=== PATIENT | female | born 1955 | race Caucasian/White ===

== ENCOUNTER → 2016-06-19 | Outpatient (CLI) | payer BC ==
--- NOTE | 2016-06-30 11:43 | MM ---
Reason for exam: screening (asymptomatic). Last mammogram was performed 1 year and 6 months ago. History: Patient is postmenopausal. Physical Findings: A clinical breast exam by your physician is recommended on an annual basis and results should be correlated with mammographic findings. MG 3D Screening Mammo W/Cad Bilateral CC and MLO view(s) were taken. Prior study comparison: December 07, 2014, bilateral MG screening mammo w CAD. October 29, 2011, mammogram, performed at [facility]. September 04, 2010, mammogram, performed at [facility]. There are scattered fibroglandular densities. No significant changes when compared with prior studies. ASSESSMENT: Negative, BI-RAD 1 RECOMMENDATION: Routine screening mammogram of both breasts in 1 year.
== END | disposition home or self-care (01) ==
LOC: RADMAMWWP 14:54
PROVIDERS: ATTEND Family Medicine
DX: Z12.31 Encounter for screening mammogram for malignant neoplasm of breast (principal)
CPT/HCPCS: 77063; G0202

== ENCOUNTER → 2017-09-24 | Outpatient (CLI) | payer BC ==
--- NOTE | 2017-09-27 11:05 | MM ---
Reason for exam: screening (asymptomatic). Last mammogram was performed 1 year and 3 months ago. History: Patient is postmenopausal. Physical Findings: A clinical breast exam by your physician is recommended on an annual basis and results should be correlated with mammographic findings. MG 3D Screening Mammo W/Cad Bilateral CC and MLO view(s) were taken. Prior study comparison: June 19, 2016, bilateral MG 3d screening mammo w/cad. December 07, 2014, bilateral MG screening mammo w CAD. The breast tissue is heterogeneously dense. This may lower the sensitivity of mammography. No suspicious abnormality. No significant changes when compared with prior studies. ASSESSMENT: Negative, BI-RAD 1 RECOMMENDATION: Routine screening mammogram of both breasts in 1 year.
== END | disposition home or self-care (01) ==
LOC: RADMAMWWP 14:44
PROVIDERS: ATTEND Family Medicine
DX: Z12.31 Encounter for screening mammogram for malignant neoplasm of breast (principal)
CPT/HCPCS: 77063; 77067

== ENCOUNTER → 2019-05-12 | Day surgery (SDC) | payer BC ==
[~2019-05-12] MED LIST: BUPIVACAIN-EPI 0.25%-1:200,000 30 ML VIAL SQ ONE; CLINDAMYCIN 900 MG in DEXTROSE 5% IN WATER 50 ML IVPB STA; DEXAMETHASONE SOD PHOSPHATE 10 MG/ML 1 ML VIAL IV ONE; GLYCOPYRROLATE 0.2 MG/ML 2 ML VIAL ONE; HEPARIN SODIUM,PORCINE 5,000 UNIT/ML 1 ML VIAL SQ ONE; HYDROcodone/APAP 5-325MG 1 EACH TAB PO ONE; HYDROmorphone (PF) 1 MG/ML ONE; KETOROLAC 30 MG/ML 1 ML VIAL IVP ONE; LACTATED RINGERS 1,000 ML IV ONE; LIDOCAINE 1% 20 ML VIAL (10MG/ML) FOR IV START INTRADERMA ONE; LIDOCAINE 1% INJ 10MG/ML (20 ML MDV) ONE; MIDAZOLAM 2 MG/2 ML VIAL ONE; NEOSTIGMINE 1 MG/ML 10 ML VIAL ONE; ONDANSETRON 4 MG/2 ML VIAL IVP ONE; PROPOFOL 10 MG/ML 20 ML VIAL IV ONE; ROCURONIUM BROMIDE 10 MG/ML 10 ML VIAL IV ONE; SCOPOLAMINE 1.5MG/72HR PATCH TRANSDERM ONE; SUCCINYLCHOLINE CHLORIDE 100 MG/5 ML SYR IV ONE; fentaNYL (PF) 50 MCG/ML 2 ML AMP ONE
--- NOTE | 2019-05-12 09:02 | P.GSHP ---
History of Present Illness H&P Date: 05/12/19 Chief Complaint: right upper quadrant pain this is a 63-year-old female who presents today for laparoscopic cholestatic. Patient's hhad complaints of right upper quadrant abdominal painn quadrant pain. Her recent ultrasound shows evidence of significant cholelithiasis. Her recent liver function tests are normal. Medications and Allergies Allergies Allergy/AdvReac Type Severity Reaction Status Date / Time cephalexin [From Keflex] Allergy Unknown Verified 05/12/19 07:25 Surgical - Exam - General well developed, well nourished, no distress - Eyes PERRL - ENT normal pinna - Neck no masses - Respiratory normal expansion - Cardiovascular Rhythm: regular - Abdomen mild right upper quadrant pain Abdomen: soft Assessment and Plan Assessment: cholelithiasis Right quadrant pain Cholecystitis We'll perform laparoscopic cholecystectomy
[2019-05-12 09:12] VITALS: BMI 22.8
--- NOTE | 2019-05-12 10:47 | P.OP ---
Date of Procedure: 05/12/19 Preoperative Diagnosis: cholelithiasis Cholecystitis Postoperative Diagnosis: cholelithiasis Cholecystitis Procedure(s) Performed: laparoscopic cholecystectomy Anesthesia: EDWIGE Surgeon: Hari Gil Estimated Blood Loss (ml): 20 Pathology: other (gallbladder) Condition: stable Disposition: PACU Description of Procedure: The patient was placed on the operating table. The patient received a general endotracheal tube anesthesia. The patients abdomen was prepped and draped in the usual sterile fashion. Through an infraumbilical stab incision, the fascia of the anterior abdominal wall was grasped with a pair of Kochers and then the Veress needle was placed in the peritoneal cavity. Position of the Veress needle was confirmed with positive drop test. The abdomen was then insufflated. After adequate insufflation, the 10 mm trocar was placed in the peritoneal cavity. Following this the laparoscope was placed in the peritoneal cavity. The patient was placed in the head-up, right side up position and then a 5 mm trocar was placed in the right lateral and right subcostal position under direct visualization. A 8 mm trocar was placed in the epigastric position. The gallbladder was grasped in the fundus and infundibulum. Traction on the gallbladder was placed in the lateral and the cephalad positions. the gallbladder was full of gallstones. Gallstones were seen the cystic duct.The triangle of Calot was visualized.. The cystic duct w as bluntly dissected until the union of the cystic duct and common bile duct was seen. A critical view of safety was achieved. The cystic duct was then divided and sealed with the Harmonic scissors. A PDS Endoloop was then placed throughout the cystic duct stump. The cystic artery divided and sealed with the Harmonic scissors. The gallbladder was then removed from the liver bed using Harmonic scissors. The gallbladder was then extracted through the epigastric port site. Operative field was checked for any bleeding spots and Harmonic scissors was used to coagulate the liver bed. The abdomen was irrigated. The trocars were removed. The skin was closed using interrupted 3-0 Vicryl suture. Dermabond dressing were applied. The patient tolerated the procedure well.
[2019-05-12 10:53] VITALS: TEMP 97
[2019-05-12] MEDS: HYDROmorphone 1 MG/ML 1 ML SYRINGE IVP ONE ×2 (11:11→11:16)
[2019-05-12 12:05] VITALS: RESP 16
[2019-05-12 12:28] VITALS: BP 112/77; PULSE 82
== END | disposition home or self-care (01) ==
LOC: OR 08:28
PROVIDERS: ATTEND Surgery
DX: K80.10 Calculus of gallbladder with chronic cholecystitis without obstruction (principal); I10 Essential (primary) hypertension; E07.9 Disorder of thyroid, unspecified; Z88.1 Allergy status to other antibiotic agents; Z79.890 Hormone replacement therapy; Z79.899 Other long term (current) drug therapy; Z98.51 Tubal ligation status
CPT/HCPCS: 88304

== ENCOUNTER 2019-06-01 07:52 | Inpatient (IN) | payer BC ==
[2019-06-01] MEDS ORDERED: LACTATED RINGERS 1,000 ML IV ONE (10:40)
[2019-06-01] MEDS ORDERED: HYDROcodone/APAP 5-325MG 1 EACH TAB PO PRN (10:40)
[2019-06-01] MEDS ORDERED: NALOXONE 0.4 MG/ML 1 ML VIAL IV PRN (10:40)
[2019-06-01 11:14] LABS: African American GFR (CKD) >90 (>60 ml/min/1.73 sqM); Albumin 4.4 g/dL (3.5-5.0); Alkaline Phosphatase 300 U/L (38-126); Amylase 75 U/L (30-110); Anion Gap 9 mmol/L; Blood Urea Nitrogen 10 mg/dL (7-17); Calcium 10.7 mg/dL (8.4-10.2); Carbon Dioxide 29 mmol/L (22-30); Chloride 98 mmol/L (98-107); Glucose 82 mg/dL (74-99); Non-African American GFR(CKD) >90 (>60 ml/min/1.73 sqM); Potassium 3.7 mmol/L (3.5-5.1); Sodium 136 mmol/L (137-145); Total Protein 7.7 g/dL (6.3-8.2)
[2019-06-01 11:18] LABS: Basophils % (A) 0 %; Eosinophils # (A) 0.2 k/uL (0-0.7); Eosinophils % (A) 3 %; HCT 39.7 % (34.0-46.0); HGB 13.3 gm/dL (11.4-16.0); Lymphocytes # (A) 1.9 k/uL (1.0-4.8); Lymphocytes % (A) 24 %; MCH 33.3 pg (25.0-35.0); MCHC 33.6 g/dL (31.0-37.0); Mean Platelet Volume 6.7; Monocytes # (A) 0.3 k/uL (0-1.0); Monocytes % (A) 4 %; Neutrophils # (A) 5.4 k/uL (1.3-7.7); Neutrophils % (A) 68 %; Platelet Count 454 k/uL (150-450); RBC 4.01 m/uL (3.80-5.40); RDW 11.6 % (11.5-15.5); WBC 7.9 k/uL (3.8-10.6)
[2019-06-01 12:05] LABS: ALT 965 U/L (4-34); AST 872 U/L (14-36)
[2019-06-01] MEDS: ONDANSETRON 4 MG/2 ML VIAL IVP PRN ×2 (13:31→20:36)
[2019-06-01] MEDS: HYDROmorphone 0.5 MG/0.5 ML SYRINGE IVP PRN ×4 (13:34→23:27)
--- NOTE | 2019-06-01 15:12 | P.GSHP ---
History of Present Illness H&P Date: 06/01/19 Chief Complaint: abdominal pain CHIEF COMPLAINT: abdominal pain, jaundice HISTORY OF PRESENT ILLNESS: 63-year-old female who recently underwent laparoscopic cholecystectomy with Dr. Gil on 05/12/2019. Patient reports abdominal pain and jaundice over the past few days. She notified Dr. Gil via telephone this morning who directly admitted her to the hospital today for further evaluation. PAST MEDICAL HISTORY: See list. PAST SURGICAL HISTORY: See list. SOCIAL HISTORY: No illicit drug use. REVIEW OF SYSTEMS: CONSTITUTIONAL: Denies fever or chills. HEENT: Denies blurred vision, vision changes, or eye pain. Denies hemoptysis CARDIOVASCULAR: Denies chest pain or pressure. RESPIRATORY: No shortness of breath. GASTROINTESTINAL: Refer to HPI for pertinent findings HEMATOLOGIC: Denies bleeding disorders. GENITOURINARY: Denies any blood in urine. SKIN: Reports itching. Reports jaundice. PHYSICAL EXAM: VITAL SIGNS: Reviewed. GENERAL: Well-developed in no acute distress. Jaundice. HEENT: Bilateral sclera icterus. Extraocular movements grossly intact. Moist buccal mucosa. Head is atraumatic, normocephalic. ABDOMEN: Soft. Nondistended. Mild tenderness with palpation. Surgical sites clean dry and intact without drainage or erythema. NEUROLOGIC: Alert and oriented. Cranial nerves II through XII grossly intact. LABORATORY DATA: WBC 7.9. Hemoglobin 13.3. Platelet count 454. Bilirubin 7.0. AST 872. ALT 965. Alkaline phosphatase 300. Amylase 75. Lipase 162 ASSESSMENT: 1. Abdominal pain 2. Jaundice 3. Recent laparoscopic cholecystectomy 4. Hyperbilirubinemia and transaminitis, suspected retained common bile duct stone PLAN: Diet as tolerated. NPO at midnight. GI on consult. Patient scheduled for ERCP tomorrow. Monitor labs. Repeat daily. Nurse practitioner note has been reviewed by physician. Signing provider agrees with the documented findings, assessment, and plan of care. Past Medical History Additional Past Medical History / Comment(s): hypothyroidism. idiopathic leg edema. RT > than left. pitting at times with travel. on meds. History of Any Multi-Drug Resistant Organisms: None Reported Past Surgical History: Cholecystectomy, Tubal Ligation Additional Past Surgical History / Comment(s): ECTOPIC Past Anesthesia/Blood Transfusion Reactions: No Reported Reaction Past Psychological History: No Psychological Hx Reported Smoking Status: Never smoker - Past Family History Mother Family Medical History: Hypertension, Renal Disease Father Family Medical History: Diabetes Mellitus Additional Family Medical History / Comment(s): type 2 heart disease Medications and Allergies Home Medications Medication Instructions Recorded Confirmed Type Cetirizine HCl [Zyrtec] 10 mg PO DAILY 05/12/19 06/01/19 History Hydrochlorothiazide 50 mg PO DAILY 05/12/19 06/01/19 History Levothyroxine Sodium [Synthroid] 112 mcg PO DAILY 06/01/19 06/01/19 History Omeprazole [PriLOSEC] 20 mg PO DAILY 06/01/19 06/01/19 History Allergies Allergy/AdvReac Type Severity Reaction Status Date / Time cephalexin [From Keflex] Allergy Mild Rash/Hives Verified 06/01/19 10:39 Surgical - Exam Vital Signs Temp Pulse Resp BP Pulse Ox 98.0 F 86 16 143/83 98 06/01/19 09:24 06/01/19 09:24 06/01/19 09:24 06/01/19 09:24 06/01/19 09:24 Results - Labs 06/01/19 10:36 06/01/19 10:36 Abnormal Lab Results - Last 24 Hours (Table) 06/01/19 06/01/19 Range/Units 10:36 10:36 Plt Count 454 H (150-450) k/uL Sodium 136 L (137-145) mmol/L Calcium 10.7 H (8.4-10.2) mg/dL Total Bilirubin 7.0 H (0.2-1.3) mg/dL AST 872 H (14-36) U/L ALT 965 H (4-34) U/L Alkaline Phosphatase 300 H (38-126) U/L Diabetes panel 06/01/19 Range/Units 10:36 Sodium 136 L (137-145) mmol/L Potassium 3.7 (3.5-5.1) mmol/L Chloride 98 (98-107) mmol/L Carbon Dioxide 29 (22-30) mmol/L BUN 10 (7-17) mg/dL Creatinine 0.68 (0.52-1.04) mg/dL Glucose 82 (74-99) mg/dL Calcium 10.7 H (8.4-10.2) mg/dL AST 872 H (14-36) U/L ALT 965 H (4-34) U/L Alkaline Phosphatase 300 H (38-126) U/L Total Protein 7.7 (6.3-8.2) g/dL Albumin 4.4 (3.5-5.0) g/dL Calcium panel 06/01/19 Range/Units 10:36 Calcium 10.7 H (8.4-10.2) mg/dL Albumin 4.4 (3.5-5.0) g/dL Pituitary panel 06/01/19 Range/Units 10:36 Sodium 136 L (137-145) mmol/L Potassium 3.7 (3.5-5.1) mmol/L Chloride 98 (98-107) mmol/L Carbon Dioxide 29 (22-30) mmol/L BUN 10 (7-17) mg/dL Creatinine 0.68 (0.52-1.04) mg/dL Glucose 82 (74-99) mg/dL Calcium 10.7 H (8.4-10.2) mg/dL Adrenal panel 06/01/19 Range/Units 10:36 Sodium 136 L (137-145) mmol/L Potassium 3.7 (3.5-5.1) mmol/L Chloride 98 (98-107) mmol/L Carbon Dioxide 29 (22-30) mmol/L BUN 10 (7-17) mg/dL Creatinine 0.68 (0.52-1.04) mg/dL Glucose 82 (74-99) mg/dL Calcium 10.7 H (8.4-10.2) mg/dL Total Bilirubin 7.0 H (0.2-1.3) mg/dL AST 872 H (14-36) U/L ALT 965 H (4-34) U/L Alkaline Phosphatase 300 H (38-126) U/L Total Protein 7.7 (6.3-8.2) g/dL Albumin 4.4 (3.5-5.0) g/dL
[2019-06-01] MEDS: HEPARIN SODIUM,PORCINE 5,000 UNIT/ML 1 ML VIAL SQ SCH ×2 (16:28→23:26)
[2019-06-02] MEDS: HYDROmorphone 0.5 MG/0.5 ML SYRINGE IVP PRN ×2 (03:51→10:10)
[2019-06-02] MEDS: ONDANSETRON 4 MG/2 ML VIAL IVP PRN ×2 (03:51→11:57)
--- NOTE | 2019-06-02 06:29 | CONS ---
CONSULTATION REASON FOR CONSULTATION: Elevated LFTs and jaundice. HISTORY OF PRESENT ILLNESS: The patient is a 63-year-old pleasant white female who underwent laparoscopic cholecystectomy by Dr. Gil on 05/12/2019 for symptomatic gallstones. The patient had done extremely well. For the last 4 days, she has been having intermittent epigastric pain radiating to the right upper quadrant area and into the back and she started noticing yellowish discoloration of her urine today. She called Dr. Gil. She had labs done on an outpatient basis which revealed a bilirubin of 6.8 and elevated LFTs. Hence, she was admitted to the hospital for further evaluation. This afternoon, the patient states that she still has epigastric discomfort and abdominal bloating, not able to tolerate any diet. PAST MEDICAL HISTORY: Gastroesophageal reflux disease, hypothyroidism, hypertension. MEDICATIONS AT HOME: Prilosec, Synthroid, hydrochlorothiazide and Zyrtec. ALLERGIES: KEFLEX. SOCIAL HISTORY: No smoking or alcohol use. FAMILY HISTORY: Unremarkable. PAST SURGICAL HISTORY: Recent gallbladder surgery. REVIEW OF SYSTEMS: CARDIOPULMONARY: No chest pain or shortness of breath. GENITOURINARY: No dysuria or hematuria. MUSCULOSKELETAL: Unremarkable. SKIN: Unremarkable. ENDOCRINE: Unremarkable. PSYCHIATRIC: Unremarkable. NEUROLOGY: Unremarkable. ENT/VISION: Unremarkable. CONSTITUTIONAL: No recent weight loss. No fever, chills or night sweats. PHYSICAL EXAMINATION: On physical examination, appears comfortable. No apparent distress. Vital signs are stable. Blood pressure is 137/76, pulse rate 85, temperature 97.9. HEENT: Examination unremarkable. Conjunctivae pink. Sclerae anicteric. Oral cavity no lesions. NECK: No JVD or lymph node enlargement. CHEST: Clear to auscultation. HEART: Regular rate and rhythm. ABDOMEN: Soft. There was tenderness in the epigastric and right upper quadrant area. Bowel sounds are positive. No organomegaly. EXTREMITIES: No pedal edema. SKIN: No rashes. Yellowish discoloration noted. EXTREMITIES: No pedal edema. NEURO: Alert and oriented x3. No focal deficits. LABS: Labs from today: WBC 7.9, hemoglobin 13.3, platelets 454. Basic metabolic panel is within normal limits. T bilirubin 7, AST 872, ALT 965, and alkaline phosphatase 300. IMPRESSION: This is a lady who presents to the hospital with severe epigastric and right upper quadrant abdominal pain for the last 2 days duration and noted to have jaundice and elevated LFT. Her serum transaminases were within normal limits two weeks ago. She is status post gallbladder surgery for symptomatic gallstones in April [address] Gil and did well postoperatively. Most likely related to common bile duct stone. RECOMMENDATIONS: 1. Clear liquid. 2. Proceed with an ERCP tomorrow. 3. Discussed with the patient, risks, benefits and complications including bleeding, perforation, etc., and patient is agreeable to it. In the meantime, we will repeat labs in the morning and will follow with you closely during her hospital stay. Thank you for this consultation. MMODL / IJN: [id number] /
[2019-06-02 08:00] LABS: ALT 620 U/L (4-34); AST 394 U/L (14-36); African American GFR (CKD) >90 (>60 ml/min/1.73 sqM); Albumin 3.8 g/dL (3.5-5.0); Alkaline Phosphatase 273 U/L (38-126); Anion Gap 11 mmol/L; Blood Urea Nitrogen 11 mg/dL (7-17); Calcium 9.5 mg/dL (8.4-10.2); Carbon Dioxide 24 mmol/L (22-30); Chloride 98 mmol/L (98-107); Glucose 76 mg/dL (74-99); Non-African American GFR(CKD) >90 (>60 ml/min/1.73 sqM); Sodium 133 mmol/L (137-145); Total Bilirubin 7.1 mg/dL (0.2-1.3); Total Protein 6.9 g/dL (6.3-8.2)
[2019-06-02 08:06] LABS: Potassium 4.3 mmol/L (3.5-5.1)
[2019-06-02] MEDS: PANTOPRAZOLE 40 MG/10 ML VIAL IVP SCH (08:57)
[2019-06-02] MEDS: HEPARIN SODIUM,PORCINE 5,000 UNIT/ML 1 ML VIAL SQ SCH ×3 (08:57→23:59)
[2019-06-02] MEDS ORDERED: KETOROLAC 30 MG/ML 1 ML VIAL IVP PRN (11:45)
[2019-06-02] MEDS: SODIUM CHLORIDE 0.9% 1,000 ML IV SCH ×3 (11:56→23:59)
[2019-06-02] MEDS: diphenhydrAMINE 50 MG/ML 1 ML VIAL IVP PRN ×2 (11:57→17:51)
[2019-06-02] MEDS ORDERED: LEVOFLOXACIN 500MG-D5W PMX 500 MG in DEXTROSE/WATER 1 100ML.BAG IVPB ONE (12:00)
[2019-06-02] MEDS ORDERED: INDOMETHACIN 50MG SUPPOSITORY RECTAL ONE (12:00)
--- NOTE | 2019-06-02 12:25 | P.PN ---
Subjective Progress Note Date: 06/02/19 CHIEF COMPLAINT: abdominal pain, jaundice HISTORY OF PRESENT ILLNESS: Patient examined at the bedside. Abdominal pain is tolerable. Denies nausea or vomiting. Reports itching. She is NPO. Bilirubin 7.1. AST 394. ALT 620. Alkaline Phosphatase 273. Vital signs stable. She is afebrile. PHYSICAL EXAM: VITAL SIGNS: Reviewed. GENERAL: Well-developed in no acute distress. Jaundice. HEENT: Bilateral sclera icterus. Extraocular movements grossly intact. Moist buccal mucosa. Head is atraumatic, normocephalic. ABDOMEN: Soft. Nondistended. Mild tenderness with palpation. Surgical sites clean dry and intact without drainage or erythema. NEUROLOGIC: Alert and oriented. Cranial nerves II through XII grossly intact. ASSESSMENT: 1. Abdominal pain 2. Jaundice 3. Recent laparoscopic cholecystectomy 4. Hyperbilirubinemia and transaminitis, suspected retained common bile duct stone PLAN: NPO. Patient scheduled for ERCP today with Dr. Hernandez Monitor labs. Repeat daily. Pain control. Continue IV dilaudid PRN Add IV Benadryl for itching Nurse practitioner note has been reviewed by physician. Signing provider agrees with the documented findings, assessment, and plan of care. Objective - Vital Signs Vital signs: Vital Signs Temp 98.3 F 06/02/19 08:24 Pulse 89 06/02/19 08:24 Resp 16 06/02/19 08:24 BP 123/76 06/02/19 08:24 Pulse Ox 95 06/02/19 08:24 Intake & Output 06/01/19 06/02/19 06/02/19 18:59 06:59 18:59 Intake Total 30 1450 Balance 30 1450 Weight 53.9 kg Intake: Intake, IV Titration 1250 Amount Lactated Ringers 1,000 ml 1250 @ 125 mls/hr IV .Q8H ONE Rx#:[id number] Oral 30 200 Other: Voiding Method Toilet Toilet # Voids 1 3 - Labs CBC & Chem 7: 06/01/19 10:36 06/02/19 06:15 Labs: Abnormal Lab Results - Last 24 Hours (Table) 06/01/19 06/01/19 06/02/19 Range/Units 10:36 10:36 06:15 Plt Count 454 H (150-450) k/uL Sodium 136 L 133 L (137-145) mmol/L Calcium 10.7 H (8.4-10.2) mg/dL Total Bilirubin 7.0 H 7.1 H (0.2-1.3) mg/dL AST 872 H 394 H (14-36) U/L ALT 965 H 620 H (4-34) U/L Alkaline Phosphatase 300 H 273 H (38-126) U/L
[2019-06-02] MEDS ORDERED: LIDOCAINE 1% INJ 10MG/ML (20 ML MDV) ONE (14:43)
[2019-06-02] MEDS ORDERED: KETAMINE 10 MG/ML 20 ML VIAL ONE (14:43)
[2019-06-02] MEDS ORDERED: PROPOFOL 10 MG/ML 20 ML VIAL IV ONE (14:43)
[2019-06-02] MEDS ORDERED: fentaNYL (PF) 50 MCG/ML 2 ML AMP ONE (14:43)
[2019-06-02] MEDS ORDERED: MIDAZOLAM 2 MG/2 ML VIAL ONE (14:43)
[2019-06-02] MEDS ORDERED: IV FLUID CONTINUATION 700 ML IV ONE (14:44)
--- NOTE | 2019-06-02 14:47 | P.CONS ---
History of Present Illness - Reason for Consult Hyponatremia obstructive jaundice - History of Present Illness 63-year-old pleasant female came in because of jaundice itching. She is comparing of moderate pain radiating to the back lipase is within normal limits patient had a recent cholecystectomy. Patient has significant generalized discoloration icteric found to be jaundiced with elevated liver enzymes. Patient pain is better controlled with the pain medications including Dilaudid and I started her on Toradol along with GI prophylaxis. Patient is bit hyponatremic and receiving IV fluids patient takes hydrochlorothiazide at home which is contributing to her hyponatremia Review of Systems REVIEW OF SYSTEMS: CONSTITUTIONAL: No fever, no malaise, no fatigue. HEENT: No recent visual problems or hearing problems. Denied any sore throat. CARDIOVASCULAR: No chest pain, orthopnea, PND, no palpitations, no syncope. PULMONARY: No shortness of breath, no cough, no hemoptysis. GASTROINTESTINAL: No diarrhea.. NEUROLOGICAL: No headaches, no weakness, no numbness. HEMATOLOGICAL: Denies any bleeding or petechiae. GENITOURINARY: Denies any burning micturition, frequency, or urgency. MUSCULOSKELETAL/RHEUMATOLOGICAL: Denies any joint pain, swelling, or any muscle pain. ENDOCRINE: Denies any polyuria or polydipsia. The rest of the 14-point review of systems is negative. Past Medical History Additional Past Medical History / Comment(s): hypothyroidism. idiopathic leg edema. RT > than left. pitting at times with travel. on meds. History of Any Multi-Drug Resistant Organisms: None Reported Past Surgical History: Cholecystectomy, Tubal Ligation Additional Past Surgical History / Comment(s): ECTOPIC Past Anesthesia/Blood Transfusion Reactions: No Reported Reaction Past Psychological History: No Psychological Hx Reported Smoking Status: Never smoker - Past Family History Mother Family Medical History: Hypertension, Renal Disease Father Family Medical History: Diabetes Mellitus Additional Family Medical History / Comment(s): type 2 heart disease Medications and Allergies Home Medications Medication Instructions Recorded Confirmed Type Cetirizine HCl [Zyrtec] 10 mg PO DAILY 05/12/19 06/01/19 History Hydrochlorothiazide 50 mg PO DAILY 05/12/19 06/01/19 History Levothyroxine Sodium [Synthroid] 112 mcg PO DAILY 06/01/19 06/01/19 History Omeprazole [PriLOSEC] 20 mg PO DAILY 06/01/19 06/01/19 History Allergies Allergy/AdvReac Type Severity Reaction Status Date / Time cephalexin [From Keflex] Allergy Mild Rash/Hives Verified 06/01/19 10:39 Physical Exam Vitals: Vital Signs Temp Pulse Resp BP BP Pulse Ox 06/02/19 12:03 98.0 F 89 16 116/67 95 06/02/19 08:24 98.3 F 89 16 123/76 95 06/02/19 00:24 97.9 F 98 18 125/77 96 06/01/19 20:13 98.3 F 100 16 117/68 94 L 06/01/19 16:19 97.9 F 85 18 137/76 100 Intake and Output 06/01/19 06/02/19 06/02/19 22:59 06:59 14:59 Intake Total 200 1250 Balance 200 1250 Intake: Intake, IV Titration 1250 Amount Lactated Ringers 1,000 ml 1250 @ 125 mls/hr IV .Q8H ONE Rx#:[id number] Oral 200 Other: Voiding Method Toilet Toilet # Voids 1 3 2 PHYSICAL EXAMINATION: GENERAL: The patient is alert and oriented x3, not in any acute distress. Well developed, well nourished. Patient does have significant icterus, yellowish di scoloration HEENT: Pupils are round and equally reacting to light. EOMI. does have scleral icterus. No conjunctival pallor. Normocephalic, atraumatic. No pharyngeal erythema. No thyromegaly. CARDIOVASCULAR: S1 and S2 present. No murmurs, rubs, or gallops. PULMONARY: Chest is clear to auscultation, no wheezing or crackles. ABDOMEN: Soft, nontender, nondistended, normoactive bowel sounds. No palpable organomegaly. MUSCULOSKELETAL: No joint swelling or deformity. EXTREMITIES: No cyanosis, clubbing, or pedal edema. NEUROLOGICAL: Gross neurological examination did not reveal any focal deficits. SKIN: No rashes. Results CBC & Chem 7: 06/01/19 10:36 06/02/19 06:15 Labs: Abnormal Lab Results - Last 24 Hours (Table) 06/02/19 Range/Units 06:15 Sodium 133 L (137-145) mmol/L Total Bilirubin 7.1 H (0.2-1.3) mg/dL AST 394 H (14-36) U/L ALT 620 H (4-34) U/L Alkaline Phosphatase 273 H (38-126) U/L Assessment and Plan Plan: -Obstructive jaundice without any pancreatitis possible choledocholithiasis patient will undergo ERCP today. had a recent cholecystectomy -Hyponatremia secondary to vertigo thiazide which will be held and patient is receiving IV fluids which will continue -Hypothyroidism continue Synthroid
[2019-06-02] MEDS ORDERED: IOPAMIDOL-300 50ML BTL MISCELLANE ONE (14:51)
--- NOTE | 2019-06-02 15:05 | P.PCN ---
Date of Procedure: 06/02/19 Procedure(s) Performed: Brief history: Patient is a 63 year-old pleasant lady scheduled for an ERCP as part of evaluation of abdominal pain and elevated serum transaminases and jaundice for the last 2 days' duration. She status post cautery as surgery 3 weeks ago for symptomatically gallstones. Procedure performed: ERCP with biliary sphincterotomy and balloon extraction Preoperative diagnoses: Elevated LFTs/jaundice and epigastric pain IV sedation per anesthesia: Procedure: After informed consent was obtained from the patient and after the risks benefits and complications including bleeding perforation and pancreatitis explained in detail the patient was brought into the endoscopy unit. The shayy ent was placed in prone position and IV conscious sedation was administered by anesthesia under continuous monitoring. The Olympus side-viewing duodenoscope was then inserted into the mouth and esophagus intubated without any difficulty. The scope was gradually advanced into the stomach and duodenum. The major papilla was identified without any difficulty. Initial cannulation resulted in the base because of the common bile duct that appeared slightly dilated measuring 8 mm in diameter. There were no obvious filling defects identified. Given the patient's presentation and elevated LFTs and jaundice I proceeded with a biliary sphincterotomy after the catheter was exchanged over a guidewire. The biliary sphincterotomy was performed at 11 o'clock position and extended to 1 cm. Following this an 8.5 mm balloon was passed over the guidewire and was gently inflated and withdrawn and I did not see any stones exiting the ampulla. An occlusion cholangiogram was performed and no other filling defects defects were noted. Patient tolerated the procedure well. Pancreatic duct was intentionally not cannulated during the entire procedure Impression: 1. Slightly dilated common bile duct with no filling defects, status post biliary sphincterotomy and balloon extraction as described above 2. Pancreatic duct intentionally not cannulated Recommendations: The findings of this examination were discussed with the patient as well as a family. She'll be started on a clear liquid diet. Repeat labs in the morning. It they are improved she can be discharged home tomorrow.
[2019-06-03 03:25] VITALS: RESP 16
[2019-06-03] MEDS ORDERED: LEVOTHYROXINE 112 MCG TAB PO SCH (06:30)
[2019-06-03 07:23] LABS: ALT 359 U/L (4-34); AST 158 U/L (14-36); African American GFR (CKD) >90 (>60 ml/min/1.73 sqM); Alkaline Phosphatase 234 U/L (38-126); Anion Gap 8 mmol/L; Blood Urea Nitrogen 6 mg/dL (7-17); Calcium 8.6 mg/dL (8.4-10.2); Carbon Dioxide 22 mmol/L (22-30); Chloride 111 mmol/L (98-107); Glucose 87 mg/dL (74-99); Non-African American GFR(CKD) >90 (>60 ml/min/1.73 sqM); Potassium 3.8 mmol/L (3.5-5.1); Sodium 141 mmol/L (137-145); Total Bilirubin 4.9 mg/dL (0.2-1.3); Total Protein 5.7 g/dL (6.3-8.2)
[2019-06-03] MEDS: SODIUM CHLORIDE 0.9% 1,000 ML IV SCH (07:33)
[2019-06-03] MEDS: HEPARIN SODIUM,PORCINE 5,000 UNIT/ML 1 ML VIAL SQ SCH (08:42)
[2019-06-03] MEDS: PANTOPRAZOLE 40 MG/10 ML VIAL IVP SCH (08:42)
[2019-06-03 09:01] VITALS: BP 123/66; PULSE 92; TEMP 98.2
--- NOTE | 2019-06-03 12:09 | PN ---
PROGRESS NOTE DATE OF SERVICE: 06/03/2019 The patient is a 63-year-old pleasant white female admitted to the hospital with acute epigastric and right upper quadrant abdominal pain for the last four days duration, as well as jaundice. She was noted to have elevated LFTs in the range of 900 and bilirubin up to 7.1. She is status post gallbladder surgery by Dr. Gil three weeks ago for symptomatic gallstones. She underwent an ERCP yesterday that showed slightly dilated CBD but no filling defects noted, status post biliary sphincterotomy and balloon extraction. The patient is feeling much better. Abdominal pain has completely resolved. No nausea or vomiting. On a liquid diet, tolerating well. PHYSICAL EXAMINATION: She appears comfortable, no acute distress. VITAL SIGNS: Stable. Blood pressure is 111/63, pulse 78, temperature 98.4. HEENT: Examination unremarkable. Conjunctivae pink. Sclerae slightly icteric. Oral cavity, no lesions. NECK: No JVD or lymph node enlargement. CHEST: Clear to auscultation. HEART: Regular rate and rhythm. ABDOMEN: Soft. Bowel sounds are positive. No organomegaly. EXTREMITIES: No pedal edema. SKIN: No rashes. NEUROLOGIC: She is alert and oriented x3. No focal deficits. LABS: Labs done from this morning, T-bili is down to 4.9, AST is 158, ALT is 359, alkaline phosphatase is 232. IMPRESSION: Severe epigastric right upper quadrant abdominal pain with jaundice and elevated liver function tests with possible common bile duct stones, status post ERCP with biliary sphincterotomy yesterday. No stones were seen in the common bile duct. She is doing much better today. Abdominal pain has completely resolved. Bilirubin is down to 4.9. Serum transaminases are improving. RECOMMENDATIONS: 1. Advance to a regular diet. 2. She can be discharged home today with outpatient follow up of her liver enzymes in two weeks. MMODL / IJN: [id number] /
--- NOTE | 2019-06-03 12:42 | P.DS ---
Providers Date of admission: 06/01/19 08:57 Expected date of discharge: 06/03/19 Attending physician: Hari Gil Consults: 06/01/19 10:27 Consult Physician Routine Consulting Provider: Maria C Hernandez Consult Reason/Comments: jaundice, recent lap rachel Do you want consulting provider notified?: Yes 06/01/19 15:00 Consult Physician Routine Consulting Provider: Cynthia Hinds Consult Reason/Comments: medical management Do you want consulting provider notified?: Yes Primary care physician: Carli L [facility] Course: Patient admitted with choledocholithiasis. Underwent ERCP yesterday. Doing well today. She would like to go home. Labs are trending downward. Will plan discharge. She will have her labs checked on Wednesday. Plan - Discharge Summary Discharge Rx Participant: No New Discharge Prescriptions: No Action Hydrochlorothiazide 50 mg PO DAILY Cetirizine HCl [Zyrtec] 10 mg PO DAILY Levothyroxine Sodium [Synthroid] 112 mcg PO DAILY Omeprazole [PriLOSEC] 20 mg PO DAILY Discharge Medication List Cetirizine HCl [Zyrtec] 10 mg PO DAILY 05/12/19 [History] Hydrochlorothiazide 50 mg PO DAILY 05/12/19 [History] Levothyroxine Sodium [Synthroid] 112 mcg PO DAILY 06/01/19 [History] Omeprazole [PriLOSEC] 20 mg PO DAILY 06/01/19 [History] Follow up Appointment(s)/Referral(s): Hari Gil MD [STAFF PHYSICIAN] - 1 Week
--- NOTE | 2019-06-05 14:32 | FL ---
Fluoroscopy HISTORY: Jaundice 55 seconds fluoroscopy time supplied to the referring clinician. 1 intraoperative C-arm images docum ent the procedure. See dictated report from gastroenterology.
== END 2019-06-03 13:11 | disposition home or self-care (01) | DRG 394 ==
LOC: 6PED 08:57
PROVIDERS: ADMIT Surgery; ATTEND Surgery
PROC: 0F798ZZ Dilation of Common Bile Duct, Via Natural or Artificial Opening Endoscopic (ICD-10-PCS; principal; 2019-06-02 13:15)
PROC: 0FD98ZX Extraction of Common Bile Duct, Via Natural or Artificial Opening Endoscopic, Diagnostic (ICD-10-PCS; principal; 2019-06-02 13:15)
DX: K91.86 Retained cholelithiasis following cholecystectomy (principal); E87.1 Hypo-osmolality and hyponatremia; E03.9 Hypothyroidism, unspecified; I10 Essential (primary) hypertension; Z90.49 Acquired absence of other specified parts of digestive tract; Z98.51 Tubal ligation status; Z98.890 Other specified postprocedural states; Z82.49 Family history of ischemic heart disease and other diseases of the circulatory system; Z79.890 Hormone replacement therapy; Z83.3 Family history of diabetes mellitus; Z79.899 Other long term (current) drug therapy; Z88.1 Allergy status to other antibiotic agents
CPT/HCPCS: 43262; 74330; 80053; 82150; 83690; 85025

== ENCOUNTER → 2021-01-03 | Outpatient (CLI) | payer BC ==
[2021-01-03 07:10] VITALS: BP 144/84; PULSE 73; RESP 18; TEMP 98.2
--- NOTE | 2021-01-03 07:35 | P.GSHP ---
History of Present Illness H&P Date: 01/03/21 Chief Complaint: abnormal mammogram Richelle is a 65 year old white female seen in consultation for Carli Madison regarding a mamographic abnormality in the right breast. Was found on a routine mammogram. The patient is unable to feel any lumps masses or nodules in either breast. She is not complaining of any nipple discharge or skin changes. She has not had any recent trauma or infection in the breast. Caffeine: 8 cups/day nicotine: none chocolate: rare Family history: Mother: Hypernephroma Hormonal history: Menarche: 15 [id number] 2 ectopic menopause: 53 BCP: for dysfunctional bleeding 30 years intermittent hormones: none Surgical history: Ectopic 2 Tubal ligation Cholecystectomy Right hip replacement Medical history: hypothryoid Social history: Nicotine: Negative Alcohol: Several glasses several times a week Drugs: Negative - Constitutional Constitutional: Denies chills, Denies fever - EENT Eyes: denies blurred vision, denies pain Ears: deny: decreased hearing, tinnitus Ears, nose, mouth and throat: Denies headache, Denies sore throat - Breasts Breasts: bilateral: as per HPI - Cardiovascular Cardiovascular: Denies chest pain, Denies shortness of breath - Respiratory Respiratory: Denies cough, Denies 7 - Gastrointestinal Gastrointestinal: Reports diarrhea, Denies abdominal pain, Denies nausea, Denies vomiting - Genitourinary (Female) Genitourinary: Denies dysuria, Denies hematuria - Menstruation Menstruation: Reports postmenopausal - Musculoskeletal Musculoskeletal: Denies myalgias - Integumentary Integumentary: Denies pruritus, Denies rash - Neurological Neurological: Denies numbness, Denies weakness - Psychiatric Psychiatric: Denies anxiety, Denies depression - Endocrine Endocrine: Denies fatigue, Denies weight change - Hematologic/Lymphatic Comment: none - Allergic/Immunologic Allergic/Immunologic: Reports seasonal allergies Past Medical History Additional Past Medical History / Comment(s): hypothyroidism. idiopathic leg edema. RT > than left. pitting at times with travel. on meds. History of Any Multi-Drug Resistant Organisms: None Reported Past Surgical History: Cholecystectomy, Joint Replacement, Tubal Ligation Additional Past Surgical History / Comment(s): ECTOPIC, right hip replacement 2019 Past Anesthesia/Blood Transfusion Reactions: No Reported Reaction Past Psychological History: No Psychological Hx Reported Smoking Status: Never smoker - Past Family History Mother Family Medical History: Hypertension, Renal Disease Father Family Medical History: Diabetes Mellitus Additional Family Medical History / Comment(s): type 2 heart disease Medications and Allergies Home Medications Medication Instructions Recorded Confirmed Type Cetirizine HCl [Zyrtec] 10 mg PO DAILY 05/12/19 01/03/21 History hydroCHLOROthiazide 50 mg PO DAILY 05/12/19 01/03/21 History Levothyroxine Sodium [Synthroid] 112 mcg PO DAILY 06/01/19 01/03/21 History Cholecalciferol (Vitamin D3) 125 mcg PO DAILY 01/03/21 01/03/21 History [Vitamin D3 (125 MCG = 5,000 IU)] Clindamycin [Cleocin] 600 mg PO ONCE PRN 01/03/21 01/03/21 History Multivitamin [Multivitamins Adult 1 each PO DAILY 01/03/21 01/03/21 History Gummies] Allergies Allergy/AdvReac Type Severity Reaction Status Date / Time cephalexin [From Keflex] Allergy Mild Rash/Hives Verified 01/03/21 07:06 Surgical - Exam Vital Signs Temp Pulse Resp BP Pulse Ox 98.2 F 73 18 144/84 99 01/03/21 07:07 01/03/21 07:07 01/03/21 07:07 01/03/21 07:07 01/03/21 07:07 - General no distress - Eyes normal ocular movement - ENT no hearing loss, no congestion - Neck trachea midline - Respiratory normal respiratory effort, clear to auscultation - Cardiovascular Rhythm: regular Heart Sounds: normal: S1, S2 - Abdomen Abdomen: soft, non tender, no guarding, no rigid, no rebound - Integumentary normal turgor - Neurologic no disoriented, no combative - Musculoskeletal normal gait - Psychiatric oriented to time, oriented to person, oriented to place, speech is normal, memory intact Bresat Exam: BRA: 34C inspection: Bilateral grade 1/2 ptosis Palpation: Right breast: Multi-positional exam fibrocystic changes no dominant masses or nodules of concern Right axilla: No adenopathy of concern Left breast: Multi-positional exam fibrocystic changes no dominant masses or nodules of concern Left axilla: No adenopathy of concern Results Mammogram and ultrasound reviewed in detail with radiology small lesion and right breast 9 o'clock position approximately 4-5 mm in size not seen well on ultrasound Assessment and Plan Assessment: Impression: 1. Radiographic abnormality right breast 2. Fibrocystic breast changes 3. Family history of cancer in mother's hypernephroma Plan: 1. Stereotactic core biopsy radiographic abnormality right breast Procedure in benefits of the procedure discussed with the patient and her significant other. Risk include but are not limited to bleeding, infection, reaction to the anesthetic. The possibility of not visualization of the lesion was discussed if this were to be the case possible 3-D stereo biopsy versus repeat radiograph in 6 months is discussed. The patient understands the risks and benefits and wishes to proceed. Alternatives such as watchful waiting or open biopsy are discussed but not recommended. CC: Carli Madison; Dr. Ori Guadarrama
== END | disposition home or self-care (01) ==
LOC: WWCWWP 06:53
PROVIDERS: ATTEND Surgery
DX: Z53.9 Procedure and treatment not carried out, unspecified reason (principal)

== ENCOUNTER → 2021-01-03 | Day surgery (SDC) | payer BC ==
[2021-01-03 07:58] VITALS: RESP 16
--- NOTE | 2021-01-03 09:00 | P.PCN ---
Date of Procedure: 01/03/21 Preoperative Diagnosis: Mammographic abnormality 9 o'clock position right breast Postoperative Diagnosis: Same Procedure(s) Performed: Stereotactic core biopsy right breast Anesthesia: local Surgeon: Ailin White Pathology: other (Breast tissue) Condition: stable Disposition: same day Indications for Procedure: Mammographic abnormality right breast 9 o'clock position Operative Findings: Dense breast tissue Description of Procedure: Richelle is a 65-year-old white female who underwent a routine screening mammogram and was noted to have an area of increased density at the 9 o'clock position of the right breast. Stereotactic core biopsy was recommended. An ultrasound was performed which did not show the lesion of concern. The risk and benefits of the procedure were discussed with the patient. Risks include but are not limited to bleeding, infection, reaction to the anesthetic. Additionally the possibility that we would not be able to see the area well on the stereotactic table which would prevent us from doing the procedure. Alternatives such as watchful waiting or open biopsy were discussed but not recommended. The patient was taken to the stereotactic core biopsy room. She was positioned prone on the low rad table. A lateral to medial approach was utilized. A bsw film was obtained. The lesion of concern was identified. The lesion was targeted. The skin was prepped using Betadine. 20 mL of 1% lidocaine were used to anesthetize the area of concern. A 9-gauge vacuum-assisted core rotating biopsy needle was driven to the correct coordinates. Prefire films wee obtained. The needle was fired. Posterior films were obtained. The needle was noted to be in the correct location. 12 core specimens were obtained. A secure lucien Top-can marker was placed. No radiograph of the specimen was performed as this was not done for calcifications. A post biopsy x-ray revealed the clip to be in the correct location. The specimen was sent to pathology. The patient will follow-up with Dr. Hawthorne next week.
[2021-01-03 09:38] VITALS: BP 128/85; PULSE 76; TEMP 98.6
--- NOTE | 2021-01-03 10:17 | MM ---
EXAMINATION TYPE: MG stereo VAD BX RT DATE OF EXAM: 01/03/2021 COMPARISON: NONE CLINICAL HISTORY: Abnormal mammogram TECHNIQUE: Stereotactic guided core biopsy of right breast. FINDINGS: Procedure was performed by Dr. Christoph Kyle. Targeting was assisted by radiology. Postprocedure mammogram is obtained. Clip is in the expected region of the small nodule targeted and present on the preprocedure mammograms. The nodule is not identified on the postprocedure mammogram. Images are reviewed with Dr. Christoph Kyle. IMPRESSION: 1. Successful stereotactic core biopsy right breast. Recommendations: 1. Recommendations are pending pathology results. Pathology Results: Benign RIGHT BREAST, CORE BIOPSY: Benign breast tissue with fibrocystic change with apocrine metaplasia and columnar cell change. Focal fragment with sclerotic stroma and compressed benign appearing glands, suggestive of possible fibroadenoma. Focal microcalcification present. Recommendation Follow up mammogram of the right breast in 6 months. [id number]
== END ==
LOC: RADMAMWWP 06:54
PROVIDERS: ATTEND Surgery
DX: D24.1 Benign neoplasm of right breast (principal)
CPT/HCPCS: 88305; 19081; A4648; J2001

== ENCOUNTER → 2021-01-16 | Outpatient (CLI) | payer BC ==
[2021-01-16 07:45] VITALS: BP 126/71; PULSE 71; RESP 16; TEMP 98.4
--- NOTE | 2021-01-16 07:52 | P.PN ---
Subjective Progress Note Date: 01/16/21 Principal diagnosis: Results stereotactic core biopsy right breast Richelle is a 65-year-old white female status post right breast stereotactic core biopsy on 01-03-21. Her pathology was benign concordant. The patient tolerated the procedure with no difficulty. I have reviewed the post procedure mammogram personally with the radiologist. Objective - Vital Signs Vital signs: Vital Signs Temp 98.4 F 01/16/21 07:38 Pulse 71 01/16/21 07:38 Resp 16 01/16/21 07:38 BP 126/71 01/16/21 07:38 Pulse Ox 97 01/16/21 07:38 Intake & Output 01/15/21 01/16/21 01/16/21 18:59 06:59 18:59 Weight 54.431 kg - Integumentary Integumentary Comment(s): Biopsy site clean and dry Assessment and Plan Assessment: Impression: 1. Radiographic abnormality right breast resulting inserted to core biopsy which is benign Plan: Repeat right breast mammogram in 6 months with physician exam at that time CC: Dr. Guadarrama
== END | disposition home or self-care (01) ==
LOC: WWCWWP 07:12
PROVIDERS: ATTEND Surgery
DX: Z53.9 Procedure and treatment not carried out, unspecified reason (principal)